=== PATIENT | female | born 1935 | race Caucasian/White ===

== ENCOUNTER → 2020-12-12 08:47 | Outpatient (BNVA) | payer MEDICARE, SELFPAY | PROVIDERS: PCP Internal Medicine; Visit Provider Hospitalist | DX: J41.0 Simple chronic bronchitis (principal); J31.0 Chronic rhinitis; R68.2 Dry mouth, unspecified | CPT/HCPCS: 99212 ==

== ENCOUNTER → 2021-08-07 08:44 | Outpatient (BNVA) | payer MEDICARE, SELFPAY | PROVIDERS: PCP Internal Medicine; Visit Provider Hospitalist | DX: J41.0 Simple chronic bronchitis (principal); J31.0 Chronic rhinitis; R60.0 Localized edema | CPT/HCPCS: 99212 ==

== ENCOUNTER 2022-02-06 10:35 | Outpatient (REF) | payer MEDICARE, SELFPAY ==
--- NOTE | ~2022-02-06 | XR_ITS ---
EXAMINATION: XR CHEST CLINICAL INFORMATION: Chronic cough COMPARISON: None TECHNIQUE: 2 views of the chest were obtained. FINDINGS: No significant abnormality is noted involving the heart, lungs, mediastinum, bony thorax or soft tissues. XR/XR chest 2V IMPRESSION: Unremarkable examination.
== END 2022-02-06 10:36 | disposition home or self-care (01) ==
LOC: HO.XRAY 10:35
PROVIDERS: PCP Internal Medicine; Visit Provider Hospitalist
DX: J41.0 Simple chronic bronchitis (principal)
CPT/HCPCS: 71046; 99212

== ENCOUNTER → 2022-08-13 10:12 | Outpatient (BNVA) | payer MEDICARE, SELFPAY | PROVIDERS: PCP Internal Medicine; Visit Provider Hospitalist | DX: J41.0 Simple chronic bronchitis (principal); J31.0 Chronic rhinitis; R05.8 Other specified cough; T46.4X5A Adverse effect of angiotensin-converting-enzyme inhibitors, initial encounter | CPT/HCPCS: 99212 ==

== ENCOUNTER → 2023-03-06 09:59 | Outpatient (BNVA) | payer MEDICARE, SELFPAY | PROVIDERS: PCP Internal Medicine; Visit Provider Hospitalist | DX: J41.0 Simple chronic bronchitis (principal); J31.0 Chronic rhinitis | CPT/HCPCS: 99212 ==

== ENCOUNTER → 2023-04-14 09:10 | Outpatient (BNVA) | payer MEDICARE, SELFPAY | PROVIDERS: PCP Internal Medicine; Visit Provider Hospitalist | DX: J41.0 Simple chronic bronchitis (principal); J31.0 Chronic rhinitis | CPT/HCPCS: 99212 ==

== ENCOUNTER 2023-09-09 09:26 | Outpatient (AMB) | payer MEDICARE, SELFPAY ==
[2023-09-09 09:30] VITALS: BP 128/70; PULSE 76; O2SAT 94; BMI 19.8
--- NOTE | 2023-09-09 09:30 | A.OFFVIS_ITS ---
Intake Vital Signs 09/09/23 09:30 Height 5 ft 3 in Weight 111 lb 15.917 oz BMI 19.8 BP 128/70 Blood Pressure Location Lt brachial Position Sitting Pulse 76 Pulse Source Pulse Oximeter Pulse Oximetry (%) 94 Oxygen Delivery Method Room Air Intake Visit Reasons: COPD follow-up Driver License Agent Required: No Allergies Seasonal Allergies Allergy (Intermediate, Uncoded 09/09/23 09:36) rash HPI HPI Comments History of Present Illness Details The patient is an 87-year-old woman with a known history of asthma in addition to chronic cough. Her major issue right now she continues coughing she doesn't understand why. She has been tried multiple inhalers with only partial resolution of her symptoms. She was evaluated by her primary care doctor had an x-ray that was read as normal per report I did request a copy. In the meantime she continues her respiratory inhalers. She does complaint of a postnasal drip. She also complains of heartburn and acid reflux. She was offered a antacid medication but she refused. She is not following any reflux diet at this time. She has not been tested for allergies at this time. She has multiple possibilities to explain her chronic cough syndrome. It likely will be a co mbination of upper airway cough syndrome with ongoing acid reflux disease or, both which could active her respiratory complaints. We did review her allergy testing that she has significantly allergic to dust mites. Again stable removal of some of the rugs in her home and also get some covers for her mattress. 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 She understands that she has to had small bites and also alternate liquids and solids to make sure that she is able to swallow effectively. 02/06/2022 the patient is here for a pulmonary follow-up visit. She states that her cough is getting worse. Her daughter is with her and she is also very concerned. She does have a postnasal drip and started developing a cough and she can stop. Moderate severity. In the meantime she was placed on an KAITLYN- inhibitor for her cardiovascular issues. I did bring to the attention to the cornelius chapa that she may be very sensitive to medications and she also very sensitive to the KAITLYN-inhibitor that can result in increasing the cough and decreasing the cough threshold. Therefore, I do believe she should be switched over to an ARB for blood pressure control without the adverse effects of worsening cough. In the meantime will treat her for potential allergies and also provide her with cough medication in order for her to stop coughing and stop irritating her throat. She continues on the Advair seems to be working well. has not had to use her rescue inhaler. In the meantime before she goes home she is going to have an x-ray to make sure that we can assess other etiologies for her chronic cough. 08/13/2022 the patient is here for a pulmonary follow-up visit. Overall the patient has been doing about the same. Still complaining of a cough. Her medication list still medications lisinopril. It also mentions losartan. I did ask patient to look into her medications and make sure that she is not taking the lisinopril. The patient also has some wheezing on examination. Explained to the patient that likely the cough is multifactorial. She has been on Advair for some time. Will go ahead and switch over to Trelegy to see if this is more effective in helping her cough and also her current wheezing. The patient does have allergies including dust mites. the patient is already taking allergy medicine. She did have an x-ray back in January 2022 which was without any acute disease which is reassuring as well. 03/06/2023 the patient is here for pulmonary follow-up visit. She is having increasing chest tightness. Recently she went to [facility] with increasing chest tightness and shortness of breath. She had a cardiac evaluation and was all negative. She was given albuterol and she had immediate relief. Therefore she continues use the Advair twice a day in addition to that has been using her albuterol inhaler twice a day. She did try Trelegy inhaler but she did not tolerate the powder was causing her to a worse cough. Therefore she stopped it. The patient understands that she has already long-acting albuterol and her Advair and not using that short-acting beta agonist is a lot of albuterol. She has a history of palpitations. She also has a history of not normal EKG. Therefore explained to her that she will be important to try to optimize respiratory therapy in order to minimize use of albuterol. The patient was taught how to use Spiriva. I did give her a trial and I did send a prescription to the pharmacy. If she has any questions she can always call the office. While she was at [facility] she had blood work which was all unremarkable and she also had a chest x-ray that I reviewed demonstrating no acute disease. Will follow-up in 6 months. 04/14/2023 the patient is here for a pulmonary follow-up visit. She was recently in urgent care and she required antibiotics for bout of bronchitis. Apparently during the last visit she was started on Spiriva in conjunction with her Advair. However she did not tolerated with worsening cough and then after that she started developing the worsening congestion. Her daughter seems to think that was related to the Spiriva. Explained to her that is typically not a side effect Spiriva although some debulking complains of cough and also chest tightness. Either way the patient stop the Spiriva as it was ineffective for her. We did look to see which in the inhaler she is taking she should be taking the Advair HFA 230/21. Will try to confirm that with pharmacy. I will resend a prescription to the pharmacy to make sure she is getting the proper 1. In the meantime she is having allergy symptoms and therefore the addition of Singulair will be a good option for her. She can start with half a tablet to make sure she tolerates at nighttime and then proceed to 1 tablet she is doing okay and if she needs more. As far as imaging studies he apparently had a chest x-ray at Urgent Care and she was told that it was okay. I do not have that report. 09/09/2023 the patient is here for a pulmonary follow-up visit. since we last spoke the patient was admitted to [facility] where she was diagnosed with atrial fibrillation. 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 She is following closely with Cardiology and now she is on Eliquis. She does continue to use her Advair as prescribed and also sometimes does need to use her albuterol. We did review her imaging studies from [facility]. She had an x-ray demonstrating hyperinflation suspicious for COPD. The patient understands that the inhalers may in the increase heart rate and sometimes even induced atrial fibrillation. Therefore, she will try to decrease the Advair to the lowest most effective dose hoping that she could try 1 puff twice a day. In addition to that if she does use her albuterol she would only use 1 puff. We also talked about considering Xopenex as an alternative to try to minimize cardiac irritation. [facility] Medical History (Updated 02/06/22 @ 18:46 by Rasta Valadez MD) Cough due to KAITLYN inhibitor Chronic cough Pedal edema COVID-19 Chronic rhinitis Dry mouth COPD (chronic obstructive pulmonary disease) Social History (Updated 08/07/21 @ 08:56 by NESTOR Means) Patient Tobacco Use Status: Former Tobacco user Tobacco use type: Cigarette Years Smoked: 30 years Review of Systems Const Denies night sweats ENT Denies change in voice, Reports dry mouth, Denies lip swelling, Denies mouth pain, Reports nasal congestion, Reports nasal discharge and Denies tongue swelling Card Denies chest pain, Reports palpitations and Reports dyspnea Resp Reports cough, Reports dyspnea and Denies wheezing GI Denies abdominal pain Musc Denies no additional complaints Neuro Denies Neuro-related abnormal movements Psych Denies no additional complaints Endo Reports palpitations Moi/Lymph Denies easy bleeding and Denies lymphadenopathy Aller/Immun Denies lip swelling, Denies tongue swelling and Denies wheezing Physical Exam Vital Signs: Last Vital Signs Pulse 76 09/09/23 09:30 BP 128/70 09/09/23 09:30 Pulse Ox 94 09/09/23 09:30 Oxygen Delivery Method Room Air 09/09/23 09:30 BMI result Body Mass Index 19.8 Const General: alert HEENT Throat: Yes postnasal drainage Eyes Pupils: Equal, round and reactive pupils present Neck Neck: Yes normal visual inspection, Yes full ROM and Yes no lymphadenopathy Chest Chest palpation & inspection: normal inspection of the chest Resp Auscultation: no wheezes and diminished lung sounds Cardio Rate: regular rate Rhythm: regular rhythm Heart sounds: S1 normal heart sound present and S2 normal heart sound present GI Palpation (GI): Soft to palpation and nontender Auscultation: normal bowel sounds General: Yes no CVA tenderness Back/Spine/Pelvis Back: no CVA tenderness Skin General skin exam: rashes and/or lesions noted Neuro Cranial nerves: Yes Equal, round and reactive pupils present Extrem General: Yes pedal edema Assessment & Plan Assessment & Plan (1) COPD (chronic obstructive pulmonary disease): Code(s): J44.9 - Chronic obstructive pulmonary disease, unspecified Qualifiers: COPD type: chronic bronchitis Chronic bronchitis type: simple Qualified Code(s): J41.0 - Simple chronic bronchitis (2) Chronic rhinitis: Code(s): J31.0 - Chronic rhinitis (3) Chronic cough: Code(s): R05.3 - Chronic cough Plan continue Advair HFA, will try 1 puff BID stopped Spiriva GLO as needed consider Singulair Wedge pillow/ sleep with HOB elevated nasal rinsing with saline Fluticasone nasal spray continue Zyrtec daily F/U 6-6 months Coding Level of Care Code Est Pt Level 4 (02926) Diagnoses Simple chronic bronchitis J41.0 COPD type: chronic bronchitis Chronic bronchitis type: simple Chronic rhinitis J31.0 Chronic cough R05.3 Time Spent (min) 18
== END 2023-09-09 10:00 | disposition home or self-care (01) ==
PROVIDERS: PCP Internal Medicine; Visit Provider Hospitalist
DX: J41.0 Simple chronic bronchitis (principal); J31.0 Chronic rhinitis
CPT/HCPCS: 99214

== ENCOUNTER → 2023-09-09 09:26 | Outpatient (BNVA) | payer MEDICARE, SELFPAY | PROVIDERS: Visit Provider Hospitalist | DX: J41.0 Simple chronic bronchitis (principal); J31.0 Chronic rhinitis | CPT/HCPCS: 99212 ==

== ENCOUNTER 2024-03-23 10:16 | Outpatient (AMB) | payer MEDICARE, SELFPAY ==
--- NOTE | 2024-03-23 10:19 | A.OFFVIS_ITS ---
Vital Signs 03/23/24 10:22 Height 5 ft 3 in Weight 108 lb BMI 19.1 BP 152/64 H Blood Pressure Location Lt brachial Position Sitting Pulse 66 Pulse Source Doppler Pulse Oximetry (%) 97 Oxygen Delivery Method Room Air Intake Visit Reasons: COPD follow up Allergies Seasonal Allergies Allergy (Intermediate, Uncoded 09/09/23 09:36) rash HPI Comments Details: The patient is an 88-year-old woman with a known history of asthma in addition to chronic cough. Her major issue right now she continues coughing she doesn't understand why. She has been tried multiple inhalers with only partial resolution of her symptoms. She was evaluated by her primary care doctor had an x-ray that was read as normal per report I did request a copy. In the meantime she continues her respiratory inhalers. She does complaint of a postnasal drip. She also complains of heartburn and acid reflux. She was offered a antacid medication but she refused. She is not following any reflux diet at this time. She has not been tested for allergies at this time. She has multiple possibilities to explain her chronic cough syndrome. It likely will be a combination of upper airway cough syndrome with ongoing acid reflux disease or, both which could active her respiratory complaints. We did review her allergy testing that she has significantly allergic to dust mites. Again stable removal of some of the rugs in her home and also get some covers for her mattress. 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 She understands that she has to had small bites and also alternate liquids and solids to make sure that she is able to swallow effectively. 02/06/2022 the patient is here for a pulmonary follow-up visit. She states that her cough is getting worse. Her daughter is with her and she is also very concerned. She does have a postnasal drip and started developing a cough and she can stop. Moderate severity. In the meantime she was placed on an KAITLYN- inhibitor for her cardiovascular issues. I did bring to the attention to the family that she may be very sensitive to medications and she also very sensitive to the KAITLYN-inhibitor that can result in increasing the cough and decreasing the cough threshold. Therefore, I do believe she should be switched over to an ARB for blood pressure control without the adverse effects of worsening cough. In the meantime will treat her for potential allergies and also provide her with c ough medication in order for her to stop coughing and stop irritating her throat. She continues on the Advair seems to be working well. has not had to use her rescue inhaler. In the meantime before she goes home she is going to have an x-ray to make sure that we can assess other etiologies for her chronic cough. 08/13/2022 the patient is here for a pulmonary follow-up visit. Overall the patient has been doing about the same. Still complaining of a cough. Her medication list still medications lisinopril. It also mentions losartan. I did ask patient to look into her medications and make sure that she is not taking the lisinopril. The patient also has some wheezing on examination. Explained to the patient that likely the cough is multifactorial. She has been on Advair for some time. Will go ahead and switch over to Trelegy to see if this is more effective in helping her cough and also her current wheezing. The patient does have allergies including dust mites. the patient is already taking allergy medicine. She did have an x-ray back in January 2022 which was without any acute disease which is reassuring as well. 03/06/2023 the patient is here for pulmonary follow-up visit. She is having increasing chest tightness. Recently she went to [facility] with increasing chest tightness and shortness of breath. She had a cardiac evaluation and was all negative. She was given albuterol and she had immediate relief. Therefore she continues use the Advair twice a day in addition to that has been using her albuterol inhaler twice a day. She did try Trelegy inhaler but she did not tolerate the powder was causing her to a worse cough. Therefore she stopped it. The patient understands that she has already long-acting albuterol and her Advair and not using that short-acting beta agonist is a lot of albuterol. She has a history of palpitations. She also has a history of not normal EKG. Therefore explained to her that she will be important to try to optimize respiratory therapy in order to minimize use of albuterol. The patient was taught how to use Spiriva. I did give her a trial and I did send a prescription to the pharmacy. If she has any questions she can always call the office. While she was at [facility] she had blood work which was all unremarkable and she also had a chest x-ray that I reviewed demonstrating no acute disease. Will follow-up in 6 months. 04/14/2023 the patient is here for a pulmonary follow-up visit. She was recently in urgent care and she required antibiotics for bout of bronchitis. Apparently during the last visit she was started on Spiriva in conjunction with her Advair. However she did not tolerated with worsening cough and then after that she started developing the worsening congestion. Her daughter seems to think that was related to the Spiriva. Explained to her that is typically not a side effect Spiriva although some debulking complains of cough and also chest tightness. Either way the patient stop the Spiriva as it was ineffective for her. We did look to see which in the inhaler she is taking she should be taking the Advair HFA 230/21. Will try to confirm that with pharmacy. I will resend a prescription to the pharmacy to make sure she is getting the proper 1. In the meantime she is having allergy symptoms and therefore the addition of Singulair will be a good option for her. She can start with half a tablet to make sure she tolerates at nighttime and then proceed to 1 tablet she is doing okay and if she needs more. As far as imaging studies he apparently had a chest x-ray at Urgent Care and she was told that it was okay. I do not have that report. 09/09/2023 the patient is here for a pulmonary follow-up visit. since we last spoke the patient was admitted to [facility] where she was diagnosed with atrial fibrillation. 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 She is following closely with Cardiology and now she is on Eliquis. She does continue to use her Advair as prescribed and also sometimes does need to use her albuterol. We did review her imaging studies from [facility]. She had an x-ray demonstrating hyperinflation suspicious for COPD. The patient understands that the inhalers may in the increase heart rate and sometimes even induced atrial fibrillation. Therefore, she will try to decrease the Advair to the lowest most effective dose hoping that she could try 1 puff twice a day. In addition to that if she does use her albuterol she would only use 1 puff. We also talked about considering Xopenex as an alternative to try to minimize cardiac irritation. 03/23/2024 the patient is here for a pulmonary follow-up visit. Overall the patient has been doing well now. Back in October she ended up going to the hospital with abdominal discomfort and blood per rectum. She was diagnosed with ischemic colitis. The patient did have a CT scan of the abdomen. We did review the lung cuts. She does have evidence of bronchitis along with mosaic pattern consistent with her obstructive airway disease. No other abnormalities noted on the limited lung windows. She continues with her Advair inhaler. She does use it twice a day. She denies any adverse effects. She does rinse her mouth. We did talk about of adding additional allergy medications such as Singulair. But at this point will try to minimize medications and side effects. She already takes Zyrtec and she does get a good response to that. No further imaging warranted at this time. The patient will continue with current therapy I did recommend she can get the Prevnar 20 vaccine. The family is not sure if they will get additional vaccines at this time. The patient will follow-up in 8-10 months. If she has any worsening symptoms prior to that she will call for an earlier assessment. [facility] Medical History (Updated 02/06/22 @ 18:46 by Rasta Valadez MD) Cough due to KAITLYN inhibitor Chronic cough Pedal edema COVID-19 Chronic rhinitis Dry mouth COPD (chronic obstructive pulmonary disease) Social History Patient Tobacco Use Status: Former Tobacco user Tobacco use type: Cigarette Years Smoked: 30 years Review of Systems Const Denies night sweats ENT Denies change in voice, Reports dry mouth, Denies lip swelling, Denies mouth pain, Reports nasal congestion, Reports nasal discharge and Denies tongue swelling Card Denies chest pain and Reports dyspnea on exertion Resp Reports cough, Reports dyspnea on exertion and Denies wheezing GI Reports as per HPI Musc Denies no additional complaints Neuro Denies Neuro-related abnormal movements Psych Denies no additional complaints Moi/Lymph Denies easy bleeding and Denies lymphadenopathy Aller/Immun Denies lip swelling, Denies tongue swelling and Denies wheezing Physical Exam Vital Signs: Last Vital Signs Pulse 66 03/23/24 10:22 BP 152/64 H 03/23/24 10:22 Pulse Ox 97 03/23/24 10:22 Oxygen Delivery Method Room Air 03/23/24 10:22 BMI result Body Mass Index 19.1 Const General: alert HEENT Throat: Yes postnasal drainage Eyes Pupils: Equal, round and reactive pupils present Neck Neck: Yes normal visual inspection, Yes full ROM and Yes no lymphadenopathy Chest Chest palpation & inspection: normal inspection of the chest Resp Auscultation: no wheezes and diminished lung sounds Cardio Rate: regular rate Rhythm: regular rhythm Heart sounds: S1 normal heart sound present and S2 normal heart sound present GI Palpation (GI): Soft to palpation and nontender Auscultation: normal bowel sounds General: Yes no CVA tenderness Back/Spine/Pelvis Back: no CVA tenderness Skin General skin exam: rashes and/or lesions noted Neuro Cranial nerves: Yes Equal, round and reactive pupils present Extrem General: Yes pedal edema Assessment & Plan Assessment & Plan (1) COPD (chronic obstructive pulmonary disease): Code(s): J44.9 - Chronic obstructive pulmonary disease, unspecified Category: Medical Qualifiers: COPD type: chronic bronchitis Chronic bronchitis type: simple Qualif ied Code(s): J41.0 - Simple chronic bronchitis (2) Chronic rhinitis: Code(s): J31.0 - Chronic rhinitis Category: Medical (3) Chronic cough: Code(s): R05.3 - Chronic cough Category: Medical Plan continue Advair HFA, will try 1 puff BID GLO as needed consider Singulair Wedge pillow/ sleep with HOB elevated nasal rinsing with saline Fluticasone nasal spray continue Zyrtec daily F/U 8-10 months Coding Level of Care Code Est Pt Level 4 (75591) Diagnoses Simple chronic bronchitis J41.0 COPD type: chronic bronchitis Chronic bronchitis type: simple Chronic rhinitis J31.0 Chronic cough R05.3 Time Spent (min) 17
[2024-03-23 10:22] VITALS: BP 152/64; PULSE 66; O2SAT 97; BMI 19.1
== END 2024-03-23 10:50 | disposition home or self-care (01) ==
PROVIDERS: PCP Internal Medicine; Visit Provider Hospitalist
DX: J41.0 Simple chronic bronchitis (principal); J31.0 Chronic rhinitis
CPT/HCPCS: 99214

== ENCOUNTER → 2024-03-23 10:16 | Outpatient (BNVA) | payer MEDICARE, SELFPAY | PROVIDERS: PCP Internal Medicine; Visit Provider Hospitalist | DX: J41.0 Simple chronic bronchitis (principal); J31.0 Chronic rhinitis | CPT/HCPCS: 99212 ==

== ENCOUNTER 2025-05-25 08:32 | Outpatient (AMB) | payer MEDICARE, SELFPAY ==
[2025-05-25 08:37] VITALS: BP 178/68; PULSE 64; O2SAT 97; BMI 18.4
--- NOTE | 2025-05-25 08:37 | A.OFFVIS_ITS ---
Vital Signs 05/25/25 08:37 Height 5 ft 3 in Weight 103 lb 9.876 oz BMI 18.4 BP 178/68 H Blood Pressure Location Lt brachial Position Sitting Pulse 64 Pulse Source Pulse Oximeter Pulse Oximetry (%) 97 Oxygen Delivery Method Room Air Intake Visit Reasons: COPD follow up Coke Inspector Required: No Allergies Seasonal Allergies Allergy (Intermediate, Uncoded 09/09/23 09:36) rash HPI Comments Details: The patient is an 89-year-old woman with a known history of asthma in addition to chronic cough. Her major issue right now she continues coughing she doesn't understand why. She has been tried multiple inhalers with only partial resolution of her symptoms. She was evaluated by her primary care doctor had an x-ray that was read as normal per report I did request a copy. In the meantime she continues her respiratory inhalers. She does complaint of a postnasal drip. She also complains of heartburn and acid reflux. She was offered a antacid medication but she refused. She is not following any reflux diet at this time. She has not been tested for allergies at this time. She has multiple possibil ities to explain her chronic cough syndrome. It likely will be a combination of upper airway cough syndrome with ongoing acid reflux disease or, both which could active her respiratory complaints. We did review her allergy testing that she has significantly allergic to dust mites. Again stable removal of some of the rugs in her home and also get some covers for her mattress. 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 She understands that she has to had small bites and also alternate liquids and solids to make sure that she is able to swallow effectively. 02/06/2022 the patient is here for a pulmonary follow-up visit. She states that her cough is getting worse. Her daughter is with her and she is also very concerned. She does have a postnasal drip and started developing a cough and she can stop. Moderate severity. In the meantime she was placed on an KAITLYN- inhibitor for her cardiovascular issues. I did bring to the attention to the family that she may be very sensitive to medications and she also very sensitive to the KAITLYN-inhibitor that can result in increasing the cough and decreasing the cough threshold. Therefore, I do believe she should be switched over to an ARB for blood pressure control without the adverse effects of worsening cough. In the meantime will treat her for potential allergies and also provide her with cough medication in order for her to stop coughing and stop irritating her throat. She continues on the Advair seems to be working well. has not had to use her rescue inhaler. In the meantime before she goes home she is going to have an x-ray to make sure that we can assess other etiologies for her chronic cough. 08/13/2022 the patient is here for a pulmonary follow-up visit. Overall the patient has been doing about the same. Still complaining of a cough. Her medication list still medications lisinopril. It also mentions losartan. I did ask patient to look into her medications and make sure that she is not taking the lisinopril. The patient also has some wheezing on examination. Explained to the patient that likely the cough is multifactorial. She has been on Advair for some time. Will go ahead and switch over to Trelegy to see if this is more effective in helping her cough and also her current wheezing. The patient does have allergies including dust mites. the patient is already taking allergy medicine. She did have an x-ray back in January 2022 which was without any acute disease which is reassuring as well. 03/06/2023 the patient is here for pulmonary follow-up visit. She is having increasing chest tightness. Recently she went to [facility] with increasing chest tightness and shortness of breath. She had a cardiac evaluation and was all negative. She was given albuterol and she had immediate relief. Therefore she continues use the Advair twice a day in addition to that has been using her albuterol inhaler twice a day. She did try Trelegy inhaler but she did not tolerate the powder was causing her to a worse cough. Therefore she stopped it. The patient understands that she has already long-acting albuterol and her Advair and not using that short-acting beta agonist is a lot of albuterol. She has a history of palpitations. She also has a history of not normal EKG. Therefore explained to her that she will be important to try to optimize respiratory therapy in order to minimize use of albuterol. The patient was taught how to use Spiriva. I did give her a trial and I did send a prescription to the pharmacy. If she has any questions she can always call the office. While she was at [facility] she had blood work which was all unremarkable and she also had a chest x-ray that I reviewed demonstrating no acute disease. Will follow-up in 6 months. 04/14/2023 the patient is here for a pulmonary follow-up visit. She was recently in urgent care and she required antibiotics for bout of bronchitis. Apparently during the last visit she was started on Spiriva in conjunction with her Advair. However she did not tolerated with worsening cough and then after that she started developing the worsening congestion. Her daughter seems to think that was related to the Spiriva. Explained to her that is typically not a side effect Spiriva although some debulking complains of cough and also chest tightness. Either way the patient stop the Spiriva as it was ineffective for her. We did look to see which in the inhaler she is taking she should be taking the Advair HFA 230/21. Will try to confirm that with pharmacy. I will resend a prescription to the pharmacy to make sure she is getting the proper 1. In the meantime she is having allergy symptoms and therefore the addition of Singulair will be a good option for her. She can start with half a tablet to make sure she tolerates at nighttime and then proceed to 1 tablet she is doing okay and if she needs more. As far as imaging studies he apparently had a chest x-ray at Urgent Care and she was told that it was okay. I do not have that report. 09/09/2023 the patient is here for a pulmonary follow-up visit. since we last spoke the patient was admitted to [facility] where she was diagnosed with atrial fibrillation. 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 She is following closely with Cardiology and now she is on Eliquis. She does continue to use her Advair as prescribed and also sometimes does need to use her albuterol. We did review her imaging studies from [facility]. She had an x-ray demonstrating hyperinflation suspicious for COPD. The patient understands that the inhalers may in the increase heart rate and sometimes even induced atrial fibrillation. Therefore, she will try to decrease the Advair to the lowest most effective dose hoping that she could try 1 puff twice a day. In addition to that if she does use her albuterol she would only use 1 puff. We also talked about considering Xopenex as an alternative to try to minimize cardiac irritation. 03/23/2024 the patient is here for a pulmonary follow-up visit. Overall the patient has been doing well now. Back in October she ended up going to the hospital with abdominal discomfort and blood per rectum. She was diagnosed with ischemic colitis. The patient did have a CT scan of the abdomen. We did review the lung cuts. She does have evidence of bronchitis along with mosaic pattern consistent with her obstructive airway disease. No other abnormalities noted on the limited lung windows. She continues with her Advair inhaler. She does use it twice a day. She denies any adverse effects. She does rinse her mouth. We did talk about of adding additional allergy medications such as Singulair. But at this point will try to minimize medications and side effects. She already takes Zyrtec and she does get a good response to that. No further imaging warranted at this time. The patient will continue with current therapy I did recommend she can get the Prevnar 20 vaccine. The family is not sure if they will get additional vaccines at this time. The patient will follow-up in 8-10 months. If she has any worsening symptoms prior to that she will call for an earlier assessment. 05/25/2025 the patient is here for pulmonary follow-up visit. Overall she is doing okay. She does have increased wheezing and difficulty breathing specially during the heat and humidity of summer. She did increase her Advair to 2 puffs twice a day. She has a rescue inhaler as well. She also continues use her allergy medicine. Overall she is doing okay she has not been walking as much specially because of weather. We did review her last chest x-ray back in 2023 without any acute disease. The patient has had some weight loss. I did request she repeat the x-ray. The patient is reluctant at this time. Will follow-up in a year's time if she has any worsening symptoms she can always call so we can reassess. FORMERLY [facility], [facility] Medical History (Updated 02/06/22 @ 18:46 by Rasta Valadez MD) Cough due to KAITLYN inhibitor Chronic cough Pedal edema COVID-19 Chronic rhinitis Dry mouth COPD (chronic obstructive pulmonary disease) Social History Patient Tobacco Use Status: Former Tobacco user Tobacco use type: Cigarette Years Smoked: 30 years Review of Systems Const Denies night sweats and Reports weight loss ENT Denies change in voice, Reports dry mouth, Denies lip swelling, Denies mouth pain, Reports nasal congestion, Reports nasal discharge and Denies tongue swelling Card Denies chest pain and Reports dyspnea on exertion Resp Reports cough, Reports dyspnea on exertion and Denies wheezing GI Reports as per HPI Musc Denies no additional complaints Neuro Denies Neuro-related abnormal movements Psych Denies no additional complaints Moi/Lymph Denies easy bleeding and Denies lymphadenopathy Aller/Immun Denies lip swelling, Denies tongue swelling and Denies wheezing Physical Exam Vital Signs: Last Vital Signs Pulse 64 05/25/25 08:37 BP 178/68 H 05/25/25 08:37 Pulse Ox 97 05/25/25 08:37 Oxygen Delivery Method Room Air 05/25/25 08:37 BMI result Body Mass Index 18.4 Const General: alert HEENT Throat: Yes postnasal drainage Eyes Pupils: Equal, round and reactive pupils present Neck Neck: Yes normal visual inspection, Yes full ROM and Yes no lymphadenopathy Chest Chest palpation & inspection: normal inspection of the chest Resp Auscultation: wheezes and diminished lung sounds Cardio Rate: regular rate Rhythm: regular rhythm Heart sounds: S1 normal heart sound present and S2 normal heart sound present GI Palpation (GI): Soft to palpation and nontender Auscultation: normal bowel sounds General: Yes no CVA tenderness Back/Spine/Pelvis Back: no CVA tenderness Skin General skin exam: rashes and/or lesions noted Neuro Cranial nerves: Yes Equal, round and reactive pupils present Extrem General: Yes pedal edema Assessment & Plan Assessment & Plan (1) COPD (chronic obstructive pulmonary disease): Code(s): J44.9 - Chronic obstructive pulmonary disease, unspecified Category: Medical Qualifiers: COPD type: chronic bronchitis Chronic bronchitis type: simple Qu alified Code(s): J41.0 - Simple chronic bronchitis (2) Chronic rhinitis: Code(s): J31.0 - Chronic rhinitis Category: Medical (3) Chronic cough: Code(s): R05.3 - Chronic cough Category: Medical Plan continue Advair HFA,f BID GLO as needed consider Singulair Wedge pillow/ sleep with HOB elevated nasal rinsing with saline Fluticasone nasal spray continue Zyrtec daily F/U 12 months Coding Level of Care Code Est Pt Level 4 (00301) Diagnoses Simple chronic bronchitis J41.0 COPD type: chronic bronchitis Chronic bronchitis type: simple Chronic rhinitis J31.0 Chronic cough R05.3 Time Spent (min) 16
--- OUTSIDE RECORDS SUMMARY | 2025-05-25 08:38 | XMS_ITS | Clinical Summary ---
Author Organization [address] [facility] Address [address] [place] [phone] Phone Care Team Providers Care Quality Control Coordinator Name Role Phone Tariq Sharma MD Primary Care Provider [phone] Allergies Active Allergy Reactions Criticality Noted Date Comments Other 02/21/2016 Seasonal Allergies: Runny nose Medications acetaminophen (TYLENOL 8 HOUR) 650 mg 8 hr tablet Take 1 tablet by mouth every 8 hours as needed for Pain for up to 10 days. 1 Active calcium carbonate/vitam in D3 (CALTRATE 600 PLUS D ORAL) Take by mouth daily. Active cetirizine (ZyrTEC) 10 mg capsule Take 10 mg by mouth as needed. Active dilTIAZem CD (CARDIZEM CD) 240 mg 24 hr capsule TAKE 1 CAPSULE BY MOUTH EVERY DAY 4 Active fluticasone propion-salmete roL (ADVAIR HFA) 230-21 mcg/actuation inhaler Inhale 2 Puffs into the lungs 2 times daily for 30 days. This medication has inhaler steroid: Rinse mouth with water and expectorate after each dose to prevent oral/esophageal candidiasis or fungal infection. 9 Active fluticasone propionate (FLONASE) 50 mcg/actuation nasal spray 2 Sprays by Each Nare route daily. Active losartan (COZAAR) 100 mg tablet TAKE 1 TABLET BY MOUTH EVERY DAY 3 Active Eliquis 2.5 mg tablet TAKE 1 TABLET BY MOUTH TWICE A DAY 180 tablet 1 5 Active Active Problems Problem Noted Date Diagnosed Date Paroxysmal atrial fibrillation ([facility] V24, [facility] V28) 06/29/2023 Overview (08/26/2024): With RVR SOB (shortness of breath) 06/29/2023 Lightheadedness 06/15/2023 Inflammatory neuropathy ([facility] V24) 2021 Atrial tachycardia ([facility] V24) 05/08/2021 Palpitations 05/08/2021 Peripheral neuropathy, idiopathic 03/12/2017 Allergic rhinitis due to allergen 05/14/2015 COPD (chronic obstructive pu lmonary disease) ([facility] V24, [facility] V28) 10/04/2012 Hyperlipidemia 08/22/2011 Primary hypertension 08/22/2011 Encounters Date Type Department Care Team Description 05/02/2025 Telephone Internal Medicine - [address] [phone] Tariq Sharma MD Referral (Pulmonology Insurance Referral) 04/12/2025 8:00 AM EDT Office Visit Internal Medicine - [address] [phone] Tariq Sharma MD Paroxysmal atrial fibrillation ([facility] V24, [facility] V28) (Primary Dx); Pure hypercholesterolemia; Primary hypertension 03/31/2025 Telephone Internal Medicine - [address] [phone] Ruma Woodruff, RN Medicare Annual Wellness Visit Subsequent 03/02/2025 9:40 AM EDT Office Visit [facility] - [address] [place] [address] Socorro Ji PA Paroxysmal atrial fibrillation ([facility] V24, [facility] V28) (Primary Dx); Primary hypertension; SOB (shortness of breath) from Last 3 Months Immunizations Name Administration Dates Next Due Influenza trivalent, 0.5mL ( Fluad) 65yo and older 09/10/2018 Influenza trivalent, 0.5mL, preservative free (Fluarix; FluLaval; Fluzone) ages 6mo and older (Afluria) 3 years and older 08/21/2015,08/15/2014,10/18/2012,08/22 Pneumococcal conjugate 13 va lent (Prevnar 13, PCV13) 2mo and older 2017 Pneumococcal polysaccharide 23 valent (Pneumovax 23) 2yo and older 10/25/2014 Tdap Tetanus diptheria acell ular pertussis (Boostrix; Adacel) 7yo and older 10/18/2018 Surgical History Surgery Date Site/Laterality Comments HYSTERECTOMY 1972 PROCEDURE: AR VAGINAL HYSTERECTOMY UTERUS 250 GM/< Medical History Medical History Date Comments COPD (chronic obstructive pu lmonary disease) ([facility] V24, [facility] V28) 10/04/2012 DX:COPD (chronic o bstructive pulmonary disease) ([facility]) Former smoker 10/04/2012 DX:Former smoker Allergic rhinitis due to allergen 05/14/2015 DX:Allergic rhinitis due to allergen HTN (hypertension) 08/22/2011 DX:HTN (hyper tension) Hyperlipidemia 08/22/2011 DX:Hyperlipidemi a Peripheral neuropathy, idiopathic 03/12/2017 DX:Peripheral neuropathy, idiopathic Family History Medical History Relation Name Comments Breast cancer Neg Hx Relation Name Status Comments Brother 1 Alive Brother 2 Alive Brother 3 Alive Father Mother Sister Alive Social History Tobacco Use Types Packs/Day Years Used Date Smoking Tobacco: Former Cigarettes Q uit: 11/09/1991 Smokeless Tobacco: Never Tobacco Cessation:Counseling Given: Not Answered Alcohol Use Standard Drinks/Week Comments Yes 0 (1 standard drink = 0.6 oz pur e alcohol) Comments Unknown Sex and Gender Information Value Date Recorded Sex Assigned at Not on file Legal Sex Female 5:41 AM EST Gender Identity Not on file Sexual Orientation Not on file Obstetrics History Last Filed Vital Signs Vital Sign Reading Time Taken Comments Blood Pressure 161/69 04/12/2025 7:58 AM EDT Pulse 64 04/12/2025 7:58 AM EDT Temperature - - Respiratory Rate - - Oxygen Saturation 97% 03/02/2025 9:46 AM EDT Inhaled Oxygen Concentration - - Weight 46.3 kg (102 lb) 04/12/2025 7:58 AM EDT Height 160 cm (5' 3 ) 04/12/2025 7:58 AM EDT Body Mass Index 18.07 04/12/2025 7:58 AM EDT Plan of Treatment Upcoming Encounters Date Type Department Care Team (Late st Contact Info) Description 10/04/2025 9:40 AM EST Office Visit [facility] - [facility] [address] [facility] [address] [place] [address] Socorro Ji PA [address] [place] [address] 10/12/2025 8:00 AM EST Office Visit Internal Medicine - [address] [phone] Tariq Sharma MD [address] [place] [phone] Health Maintenance Due Date Last Done Comments Zoster Vaccines (1 of 2) 1987 RSV Immunization Adult Patients (1 - 1-dose 75+ series) 2012 Depression Screening 10/18/2022 Falls Risk Assessment 10/18/2022 Medicare Annual Wellness Visit 10/18/2022 Social Influencers of Health Screening 10/18/2022 COVID-19 Vaccine ( season) 2024 Influenza Vaccine (#1) 2025 8, 08/21/2015, 08/15/2014, Additional history exists Hypertension/CHF/CAD Annual BMP Blood Test 04/12/2026 04/12/2025, 04/12/2024, 04/12/2024 DTaP,Tdap,and Td Vaccines (2 - Td or Tdap) 10/18/2028 10/18/2018 Cholesterol Screening (Lipid Panel) 04/12/2030 04/12/2025, 04/12/2024, 04/12/2024 Osteoporosis Screening (Bone Density Screening) 07/24/2032 07/24/2022 Pneumococcal Vaccine: 50+ Years Completed 2017, 10/25/2014 HIB Vaccines Aged Out No longer eligi ble based on patient's age to complete this topic HPV Vaccines Aged Out No longer eligi ble based on patient's age to complete this topic Hepatitis A Vaccines Aged Out No long er eligible based on patient's age to complete this topic Hepatitis B Vaccines Aged Out No long er eligible based on patient's age to complete this topic IPV Vaccines Aged Out No longer eligi ble based on patient's age to complete this topic MMR Vaccines Aged Out No longer eligi ble based on patient's age to complete this topic Meningococcal ACWY Vaccine Aged Out N o longer eligible based on patient's age to complete this topic Meningococcal B Vaccine Aged Out No l onger eligible based on patient's age to complete this topic RSV Immunization Patients Under 20 months Aged Out No longer eligible based on patient's age to complete this topic Varicella Vaccines Aged Out No longer eligible based on patient's age to complete this topic Procedures Procedure Name Priority Date/Time Associated Diagnosis Comments THYROID STIMULATING HORMONE WITH REFLEX TO FREE T4 AND FREE T3 Routine 04/12/2025 8:50 AM EDT Pure hypercholesterolemia ALANINE AMINOTRANSFERASE Routine 04/12/2025 8:50 AM EDT Pure hypercholesterolemia ASPARTATE AMINOTRANSFERASE Routine 04/12/2025 8:50 AM EDT Pure hypercholesterolemia BASIC METABOLIC PANEL Routine 04/12/2025 8:50 AM EDT Pure hypercholesterolemia LIPID PANEL WITH REFLEX TO DIRECT LDL Routine 04/12/2025 8:50 AM EDT Pure hypercholesterolemia ECG 12-LEAD Routine 03/02/2025 9:50 AM EDT Paroxysmal atrial fibrillation (CMS/HCC V24, CMS/HCC V28) DXA BONE DENSITY STUDY 1+ SITS AXIAL SKEL Routine 07/24/2022 2:16 PM EDT Essential (primary) hypertension Encounter for screening for osteoporosis from Last 3 Months or Most Recently Relevant to Health Maintenance Results * Thyroid stimulating hormone with reflex to free t4 and free t3 (04/12/2025 8:50 AM EDT) TSH 2.02 0.40 - 4.00 mcIU/mL LAB CHEMISTRY METHOD 04/12/2025 2:26 PM EDT [facility] Blood Venous blood specimen / Unknown Venipuncture / Unknown 04/12/2025 8:50 AM EDT 04/12/2025 8:50 AM EDT us Tariq Sharma MD LAB BLOOD ORDERABLES Final Res ult [facility] [address] [place] [address], [place] [phone] * (ABNORMAL) Lipid panel with reflex to direct LDL (04/12/2025 8:50 AM EDT) [facility] Cholesterol 202(H) 0 - 200 mg/dL LAB CHEMISTRY METHOD 04/12/2025 1:47 PM EDT [facility] Triglycerides 88 0 - 150 mg/dL LAB CHEMISTRY METHOD 04/12/2025 1:47 PM EDT [facility] HDL 95 >=40 mg/dL LAB CHEMISTRY METHOD 04/12/2025 1:47 PM EDT [facility] LDL Calculated 89 0 - 100 mg/dL LAB CHEMISTRY METHOD 04/12/2025 1:47 PM EDT [facility] VLDL Cholesterol Aron 17.6 mg/dL LAB CHEMISTRY METHOD 04/12/2025 1:47 PM EDT [facility] Non HDL Chol. (LDL+VLDL) 107 <145 mg/dL LAB CHEMISTRY METHOD 04/12/2025 1:47 PM EDT [facility] Chol/HDL Ratio 2.1 0.0 - 4.4 LAB CHEMISTRY METHOD 04/12/2025 1:47 PM [facility] Blood Venous blood specimen / Unknown Venipuncture / Unknown 04/12/2025 8:50 AM EDT 04/12/2025 8:50 AM EDT us Tariq Sharma MD LAB BLOOD ORDERABLES Final Res ult Performing Organization Address [facility]/ZIP Co de Phone Number [facility] [address] [place] [address], [place] [phone] * Alanine aminotransferase (04/12/2025 8:50 AM EDT) ALT (SGPT) 19 10 - 60 unit/L LAB CHEMISTRY METHOD 04/12/2025 1:30 PM EDT [facility] Blood Venous blood specimen / Unknown Venipuncture / Unknown 04/12/2025 8:50 AM EDT 04/12/2025 8:50 AM EDT us Tariq Sharma MD LAB BLOOD ORDERABLES Final Res ult Performing Organization Address [facility] Co de Phone Number [facility] [address] [place] [address], [place] [phone] * Aspartate aminotransferase (04/12/2025 8:50 AM EDT) AST (SGOT) 15 10 - 42 unit/L LAB CHEMISTRY METHOD 04/12/2025 1:41 PM EDT [facility] Blood Venous blood specimen / Unknown Venipuncture / Unknown 04/12/2025 8:50 AM EDT 04/12/2025 8:50 AM EDT us Tariq Sharma MD LAB BLOOD ORDERABLES Final Res ult Performing Organization Address [facility]/ZIP Co de Phone Number [facility] [address] [place] [address], [place] [phone] * Basic metabolic panel (04/12/2025 8:50 AM EDT) Sodium 135 133 - 145 mmol/L LAB CHEMISTRY METHOD 04/12/2025 1:41 PM EDT [facility] Potassium 4.6 3.5 - 5.5 mmol/L LAB CHEMISTRY METHOD 04/12/2025 1:41 PM [facility] Chloride 99 96 - 110 mmol/L LAB CHEMISTRY METHOD 04/12/2025 1:41 PM [facility] CO2 28 21 - 32 mmol/L LAB CHEMISTRY METHOD 04/12/2025 1:41 PM [facility] Anion Gap 8 3 - 11 LAB CHEMISTRY METHOD 04/12/2025 1:41 PM [facility] Glucose 90 70 - 100 mg/dL LAB CHEMISTRY METHOD 04/12/2025 1:41 PM [facility] BUN 14 5 - 25 mg/dL LAB CHEMISTRY METHOD 04/12/2025 1:41 PM [facility] Creatinine 0.69 0.50 - 1.10 mg/dL LAB CHEMISTRY METHOD 04/12/2025 1:41 PM [facility] eGFR 84 >=60 mL/min/1. 73m2 LAB CHEMISTRY METHOD 04/12/2025 1:41 PM [facility] Comment:Calculation based on the Chronic Kidney Disease Epidemiology Collaboration (CKD-EPI) equation refit without adjustment for race. BUN/Creatinine Ratio 20.3 LAB CHEMISTRY METHOD 04/12/2025 1:41 PM [facility] Calcium 9.6 8.5 - 10.5 mg/dL LAB CHEMISTRY METHOD 04/12/2025 1:41 PM [facility] Blood Venous blood specimen / Unknown Venipuncture / Unknown 04/12/2025 8:50 AM EDT 04/12/2025 8:50 AM EDT us Tariq Sharma MD LAB BLOOD ORDERABLES Final Res ult [facility] [address] [place] [address], [place] [phone] * ECG 12 lead (03/02/2025 9:50 AM EDT) Ventricular Rate ECG 64 BPM GEMUSE Atrial Rate 64 BPM GEMUSE P-R Interval 162 ms GEMUSE QRS Duration 82 ms GEMUSE Q-T Interval 394 ms GEMUSE QTc 406 ms GEMUSE P Wave [place] 81 degrees GEMUSE R [place] 78 degrees GEMUSE T [place] 77 degrees GEMUSE ECG Interpretation Sinus rhythm with occasional Premature ventricular complexes Anterior infarct , age undetermined - unchgd from serial ekgs dating back to 2012 No previous ECGs available Confirmed by JUSTYNA GARCIA ([id number]) on 03/06/2025 3:57:55 PM GEMUSE 03/02/2025 9:50 AM EDT 03/06/2025 3:57 PM EDT Socorro SOL ECG ORDERABLES Final Result GEMUSE * DXA BONE DENSITY STUDY 1+ SITS AXIAL SKEL (07/24/2022 2:16 PM EDT) Anatomical Region Laterality Modality Bone Densitometr y 07/21/2022 11:5 4 AM EDT Narrative 07/25/2022 9:34 AM EDT Clinical history: other(see comments) Scans of the lumbar spine and hips were performed on a [employer] fan beam bone densitometer. Bone mineral density measurements and associated T and Z scores respectively are as follows: Lumbar Spine: L1-L4 BMD: 0.999 g/cm2 T-Score: -0.4 Z-Score: 2.4 Compared with the prior study dated 12/01/2016, the BMD reading has increased which is statistically significant Left Proximal Femur: Neck BMD: 0.851 g/cm2 T-Score: 0 Z-Score: 2.5 Total BMD: 0.920 g/cm2 T-Score: -0.2 Z-Score: 2.1 Compared with the prior study the mean BMD reading in the total left hip has increased which is not statistically significant Compared with standards for the young adult, lowest measured bone density places the patient in the W.H.O. normal range. IMPRESSION: IMPRESSION: Normal bone density. The NOF guidelines recommend that FDA approved medical therapies be considered in postmenopausal women and men age >50 years with a: i. Hip or vertebral (clinical or morphometric) fracture ii. T score of < -2.5 at the spine or hip iii. 10 year fracture probability by FRAX of >3% for hip fracture, or >20% for major osteoporotic fracture PLEASE NOTE: W.H.O. classification is based on lowest measured density at the spine, femoral neck, or total hip.This classification has prognostic significance when applied to post menopausal women and older men. 1) The World Health Organization defines low BMD as follows: T-score Normal at or > -1 Osteopenia < -1 and > -2.5 Osteoporosis at or < -2.5 without fractures Established osteoporosis < -2.5 with fractures Procedure Note Flavio Schmidt MD - 10/28/2022 Clinical history: other(see comments) Scans of the lumbar spine and hips were performed on a [employer] beam bone densitometer. Bone mineral density measurements and associated T and Z scoresrespectively are as follows: Lumbar Spine: L1-L4 BMD: 0.999 g/cm2 T-Score: -0.4 Z-Score: 2.4 Compared with the prior study dated 12/01/2016, the BMD reading hasincreased which is statistically significant Left Proximal Femur: Neck BMD: 0.851 g/cm2 T-Score: 0 Z-Score: 2.5 Total BMD: 0.920 g/cm2 T-Score: -0.2 Z-Score: 2.1 Compared with the prior study the mean BMD reading in the total left hiphas increased which is not statistically significant Compared with standards for the young adult, lowest measured bone densityplaces the patient in the W.H.O. normal range. IMPRESSION: IMPRESSION: Normal bone density. The NOF guidelines recommend that FDA approved medical therapies beconsidered in postmenopausal women and men age >50 years with a: i. Hip or vertebral (clinical or morphometric) fracture ii. T score of < -2.5 at the spine or hip iii. 10 year fracture probability by FRAX of >3% for hip fracture, or >20%for major osteoporotic fracture PLEASE NOTE: W.H.O. classification is based on lowest measured density at the spine,femoral neck, or total hip.This classification has prognostic significance when applied to postmenopausal women and older men. 1) The World Health Organization defines low BMD as follows: T-score Normal at or > -1 Osteopenia < -1 and > -2.5 Osteoporosis at or < -2.5 withoutfractures Established osteoporosis < -2.5 with fractures Tariq Sharma MD IM DXA PROCEDURES Final Resul t from Last 3 Months or Most Recently Relevant to Health Maintenance Insurance [employer] Care Teams Quality Control Coordinator Relationship Specialty Start Date End Date Tariq Sharma MD [address] [place] [id number] PCP - General 08/13/11
== END 2025-05-25 09:08 | disposition home or self-care (01) ==
LOC: HO.HPS 08:32
PROVIDERS: PCP Internal Medicine; Visit Provider Hospitalist
DX: J41.0 Simple chronic bronchitis (principal); J31.0 Chronic rhinitis; R05.3 Chronic cough
CPT/HCPCS: 99214

== ENCOUNTER → 2025-05-25 08:32 | Outpatient (BNVA) | payer MEDICARE, SELFPAY | PROVIDERS: PCP Internal Medicine; Visit Provider Hospitalist | DX: J41.0 Simple chronic bronchitis (principal); J31.0 Chronic rhinitis | CPT/HCPCS: 99212 ==